=== PATIENT | female | born 1955 | race Caucasian/White ===

== ENCOUNTER 2017-04-16 13:12 | Emergency (ER) | payer MEDICARE ==
--- NOTE | 2017-04-16 14:52 | UC ---
Lower Extremity/Ankle HPI - HPI Summary HPI Summary: Had a fall about 3 weeks ago, directly onto the left knee, with development of pain and swelling of the left knee. Had ecchymosis in the foreleg which tracked to the foot. Has persistent swelling with some calf pain. Of note, has had increased dyspnea with exertion; walking hills which she normally does, has had to stop to catch her breath. - History of Current Complaint Chief Complaint: UCLowerExtremity Stated Complaint: POSS DVT Time Seen by Provider: 04/16/17 14:42 Hx Obtained From: Patient Onset/Duration: Gradual Onset, Lasting Weeks - 3 Severity Initially: Moderate Severity Currently: Moderate Pain Intensity: 7 Pain Scale Used: 0-10 Numeric Aggravating Factor(s): Standing, Ambulation Alleviating Factor(s): Rest Able to Bear Weight: Yes - Risk Factors Gout Risk Factors: Hypertension DVT Risk Factors: Recent Trauma Septic Arthritis Risk Factor: Negative - Allergies/Home Medications Allergies/Adverse Reactions: Allergies Allergy/AdvReac Type Severity Reaction Status Date / Time Acetaminophen [From Tylenol] Allergy Intermediate Abdominal Verified 04/16/17 13 :45 Pain Aspirin Allergy Unknown Verified 04/16/17 13:45 [From Talwin Compound] Reaction Details CI Pigment Blue 63 Allergy Unknown Verified 04/16/17 13:45 [From Cymbalta] Reaction Details Cimetidine Allergy Unknown Verified 04/16/17 13:45 [From Tagamet (Premixed] Reaction Details Codeine Allergy Unknown Verified 08/09/14 06:08 Reaction Details Duloxetine [From Cymbalta] Allergy Unknown Verified 04/16/17 13:45 Reaction Details Ephedrine [From Tedral] Allergy Unknown Verified 04/16/17 13:45 Reaction Details Eszopiclone [From Lunesta] Allergy Unknown Verified 04/16/17 13:45 Reaction Details Iodine Allergy Hives/Diff. Verified 04/16/17 13:45 Breathing/I tching Mirtazapine [From Remeron] Allergy Unknown Verified 04/16/17 13:45 Reaction Details Nefazodone [From Serzone] Allergy Unknown Verified 04/16/17 13:45 Reaction Details Penicillins Allergy Unknown Verified 04/16/17 13:45 Reaction Details Pentazocine [From Talacen] Allergy Unknown Verified 04/16/17 13:45 Reaction Details Phenobarbital [From Tedral] Allergy Unknown Verified 04/16/17 13:45 Reaction Details Pregabalin [From Lyrica] Allergy Unknown Verified 04/16/17 13:45 Reaction Details Ramelteon [From Rozerem] Allergy Unknown Verified 04/16/17 13:45 Reaction Details Serotonin Reuptake Inhibitors Allergy Unknown Verified 04/16/17 13:45 Reaction Details Sertraline [From Zoloft] Allergy Unknown Verified 04/16/17 13:45 Reaction Details Shellfish Allergy Allergy Abdominal Verified 04/16/17 13:45 Pain Theophylline [From Tedral] Allergy Unknown Verified 04/16/17 13:45 Reaction Details Clindamycin AdvReac Diarrhea Verified 04/16/17 13:45 green plants Allergy Unknown Uncoded 04/16/17 13:45 Reaction Details Home Medications: Home Medications Adalimumab [Humira] 10 mg SC MONTHLY 04/16/17 [History Confirmed 04/16/17] Omeprazole CAP* [Prilosec CAP* 20 MG] 20 mg PO BID 04/16/17 [History Confirmed 04/16/17] sulfaSALAzine TAB* [Azulfidine TAB*] 500 mg PO BID 04/16/17 [History Confirmed 04/16/17] PMH/Surg Hx/FS Hx/Imm Hx - Additional Past Medical History Additional PMH: chronic pain associated with RA, ankylosis spondylitis and fibromyalgia Cardiovascular History: Hypertension GI/ History: Gastroesophageal Reflux - Surgical History Surgical History: Yes Surgery Procedure, Year, and Place: HERNIA, MASS LEFT BREAST,-CLIPS LEFT, D AND C, ROTATOR CUFF, EYES, TONSILS, - Family History Known Family History: Positive: Cardiac Disease, Hypertension, Other - ankylsosi spondylitis; sister of bile duct cancer. - Social History Occupation: Disabled Lives: Alone Alcohol Use: Occasionally Substance Use Type: None Smoking Status (MU): Former Smoker Type: Cigarettes Length of Time of Smoking/Using Tobacco: 20 YRS Have You Smoked in the Last Year: No When Did the Patient Quit Smoking/Using Tobacco: 1999 - Immunization History Most Recent Influenza Vaccination: fall 2016 Most Recent Tetanus Shot: 2014 Most Recent Pneumonia Vaccination: never Review of Systems Constitutional: Fatigue Eyes: Other - vertigo, photophobia. Gastrointestinal: Other - history of Crohn's disease. Motor: Negative Musculoskeletal: Arthralgia, Calf Tenderness Neurological: Other - chronic vertigo Psychological: Negative Is Patient Immunocompromised?: Yes All Other Systems Reviewed And Are Negative: Yes Physical Exam Triage Information Reviewed: Yes Appearance: Pain Distress - mild to moderate., Obese Vital Signs: Initial Vital Signs Temp 97.9 F 04/16/17 13:34 Pulse 83 04/16/17 13:34 Resp 16 04/16/17 13:34 BP 172/70 04/16/17 13:34 Pulse Ox 98 04/16/17 13:34 Vital Signs Reviewed: Yes ENT: Positive: Pharynx normal Neck exam: Normal Respiratory: Positive: Lungs clear, Normal breath sounds Cardiovascular: Positive: RRR, No Murmur Musculoskeletal Exam: Other - left knee effusion, mildly warm Musculoskeletal: Positive: ROM Limited @ - left knee, Other: - + Julee's on the left Calf circumference on the left 7 cm below TT is 46 compared to 44cm on the right. Ankle circumference on the right is 1 cm less than the left. Lower Extremity Course/Dx - Course Course Of Treatment: continue symptomatic treatment of knee pain - Differential Dx/Diagnosis Differential Diagnosis/HQI/PQRI: Contusion, DVT, Sprain, Strain Provider Diagnoses: left knee contusion Discharge - Discharge Plan Condition: Stable Disposition: HOME Patient Education Materials: Knee Pain (ED) Referrals: Angus Wiley MD [Primary Care Provider] - Additional Instructions: You do not have a deep veing thrombosis. Follow up with Dr. Wiley as needed.
[2017-04-16 15:34] VITALS: BP 152/78
--- NOTE | 2017-04-16 15:39 | RAD ---
INDICATION: LEFT calf pain and swelling for 3 weeks post fall. History of rheumatoid arthritis. Assess for DVT. COMPARISON: No relevant prior exams available on the [facility] PACS. TECHNIQUE: Luna scale, color Doppler, and spectral analysis of the deep veins of the LEFT lower extremity. Vessel compression, phasicity, and augmentation assessed. REPORT: The LEFT common femoral, great saphenous, profunda femoral, femoral, popliteal, peroneal, and posterior tibial veins are patent. Patency of the RIGHT common femoral vein documented. IMPRESSION: No evidence for LEFT lower extremity deep venous thrombosis.
== END 2017-04-16 15:54 | disposition home or self-care (01) ==
LOC: UCEAST 13:12
DX: S80.02XA Contusion of left knee, initial encounter (principal); W18.30XA Fall on same level, unspecified, initial encounter; Y93.9 Activity, unspecified; Y92.9 Unspecified place or not applicable; Y99.9 Unspecified external cause status; M06.9 Rheumatoid arthritis, unspecified; K21.9 Gastro-esophageal reflux disease without esophagitis; Z87.891 Personal history of nicotine dependence
CPT/HCPCS: 99212; G0463

== ENCOUNTER 2018-01-20 12:58 | Emergency (ER) | payer MEDICARE ==
--- NOTE | 2018-01-20 13:08 | UC ---
Skin Complaint HPI - HPI Summary HPI Summary: A 62 y/o F presents to E s/p being stung by a hornet onset 48 hours ago. Pt was stung on the knuckles of her R hand. Swelling of her R hand has worsened this AM. Associated sx: erythema of R hand, generalized itching in the area. Denies SOB, edema of tongue and lips. Her PCP referred her to the E. She took oral Benadryl, topical hydrocortisone for the itching but to no relief. PMHx: Crohn's, RA, fibromyalgia. Former smoker. - History of Current Complaint Stated Complaint: BEE STING Hx Obtained From: Patient Onset/Duration: Sudden Onset, Lasting Days - 48 hours ago, Still Present Timing: Constant Current Severity: Mild Pain Intensity: 3 Pain Scale Used: 0-10 Numeric Location: Hand (Right) Character: Swelling, Pruritus, Pain, Redness Associated Signs & Symptoms: Negative: Difficulty Breathing - Allergy/Home Medications Allergies/Adverse Reactions: Allergies Allergy/AdvReac Type Severity Reaction Status Date / Time ephedrine [From Tedral] Allergy Intermediate Unknown Verified 01/20/18 13:11 Reaction Details phenobarbital [From Tedral] Allergy Intermediate Unknown Verified 01/20/18 13:11 Reaction Details theophylline [From Tedral] Allergy Intermediate Unknown Verified 01/20/18 13:11 Reaction Details acetaminophen [From Tylenol] Allergy Unknown Verified 01/20/18 13:07 Reaction Details aspirin Allergy Unknown Verified 01/20/18 13:08 [From Talwin Compound] Reaction Details cimetidine Allergy Unknown Verified 01/20/18 13:09 Reaction Details clindamycin Allergy stomach Verified 01/20/18 13:17 upset codeine Allergy Unknown Verified 01/20/18 13:10 Reaction Details duloxetine [From Cymbalta] Allergy Unknown Verified 01/20/18 13:08 Reaction Details eszopiclone [From Lunesta] Allergy Unknown Verified 01/20/18 13:12 Reaction Details iodine Allergy Unknown Verified 01/20/18 13:12 Reaction Details mirtazapine [From Remeron] Allergy Unknown Verified 01/20/18 13:12 Reaction Details nefazodone [From Serzone] Allergy Unknown Verified 01/20/18 13:13 Reaction Details nickel Allergy Unknown Verified 01/20/18 13:22 Reaction Details Penicillins Allergy Unknown Verified 01/20/18 13:14 Reaction Details pentazocine Allergy Unknown Verified 01/20/18 13:08 [From Talwin Compound] Reaction Details pregabalin [From Lyrica] Allergy Unknown Verified 01/20/18 13:15 Reaction Details ramelteon [From Rozerem] Allergy Unknown Verified 01/20/18 13:16 Reaction Details sertraline Allergy Unknown Verified 01/20/18 13:16 Reaction Details green plants Allergy Unknown Uncoded 04/16/17 13:45 Reaction Details nickel Allergy Unknown Uncoded 01/20/18 13:22 Reaction Details shellfish Allergy Unknown Uncoded 01/20/18 13:17 Reaction Details Review of Systems Skin: Other - Swelling, redness and itch to R hand ENT: Negative - swelling to lips/tongue Respiratory: Negative - SOB All Other Systems Reviewed And Are Negative: Yes PMH/Surg Hx/FS Hx/Imm Hx Previously Healthy: No - Crohn's, fibromyalgia Cardiovascular History: Hypertension, Myocardial Infarction Respiratory History: Asthma - Surgical History Surgical History: Yes Surgery Procedure, Year, and Place: HERNIA, MASS LEFT BREAST,-CLIPS LEFT, D AND C, ROTATOR CUFF, EYES, TONSILS, - Family History Known Family History: Positive: Cardiac Disease, Hypertension, Other - ankylsosi spondylitis; sister of bile duct cancer. Family History: arthritis, thyroid - Social History Occupation: Disabled Lives: Alone Alcohol Use: Occasionally Substance Use Type: None Smoking Status (MU): Former Smoker Type: Cigarettes Length of Time of Smoking/Using Tobacco: 20 YRS Have You Smoked in the Last Year: No When Did the Patient Quit Smoking/Using Tobacco: 1999 - Immunization History Most Recent Influenza Vaccination: fall 2016 Most Recent Tetanus Shot: 2013 Most Recent Pneumonia Vaccination: never Physical Exam - Summary Physical Exam Summary: VITAL SIGNS: Reviewed. GENERAL: Patient is a well-developed and nourished FEMALE who is lying comfortable in the stretcher. Patient is not in any acute respiratory distress. HEAD AND FACE: Normocephalic EYES: PERRLA, EOMI x 2. EARS: Hearing grossly intact. MOUTH: Oropharynx within normal limits. NECK: Supple, trachea is midline, no adenopathy, no JVD, no carotid bruit. CHEST: Symmetric, no tenderness at palpation LUNGS: Clear to auscultation bilaterally. No wheezing or crackles. CVS: Regular rate and rhythm, S1 and S2 present, no murmurs or gallops appreciated. ABDOMEN: Soft, non-tender. Bowel sounds are normal. No abdominal abnormal pulsations. EXTREMITIES: Full ROM in all major joints, no cyanosis or clubbing. There is swelling to R dorsal aspect of R hand going into wrist and forearm with positive erythema NEURO: Alert and oriented x 3. No acute neurological deficits. Speech is normal and follows commands. SKIN: Dry and warm Triage Information Reviewed: Yes Vital Signs Reviewed: Yes Course/Dx - Course Course Of Treatment: The patient was found to have increased BP in UC. The patient will follow up with PCP for better control of BP. . This patient is a 62-year-old female who presents to the urgent care with chief complaint of having pain, redness in the right hand after she was stung by a bee. He since that the patient is living with a cellulitis. Patient was given Bactrim and Atarax for the itching. Patient will follow-up with primary care physician for further workup and management. Patient is hemolyticus stable alert oriented 3. - Diagnoses Provider Diagnoses: Cellulitis Discharge - Sign-Out/Discharge Documenting (check all that apply): Patient Departure - DC All imaging exams completed and their final reports reviewed: No Studies - Discharge Plan Condition: Stable Disposition: HOME Prescriptions: hydrOXYzine HCL TAB* [Atarax 25 MG TAB*] 25 mg PO TID PRN #30 tab PRN Reason: Itching Sulfamethox/Trimethoprim DS* [Bactrim DS 800/160 TAB*] 1 tab PO BID #20 tab Patient Education Materials: Cellulitis (ED) Referrals: Angus Wiley MD [Primary Care Provider] - Additional Instructions: Take medications as instructed and adhere to plan Take Acetaminophen or ibuprofen for pain or fever Increase your fluid intake Return to the or go to the emergency department if symptoms worsen Follow-up with primary care physician in next 2-3 days FOLLOW UP WITH YOUR PRIMARY CARE PROVIDER WITHIN ONE WEEK FOR HIGH BLOOD PRESSURE NOTED TODAY. - Billing Disposition and Condition Condition: STABLE Disposition: Home - Attestation Statements Document Initiated by Nikitaibananda: Yes Documenting Scribe: Colin Tinajero Provider For Whom Ro is Documenting (Include Credential): Jerry Dupont MD Scribe Attestation: I, Colin Tinajero, scribed for Jerry Dupont MD on 01/20/18 at 1413. Scribe Documentation Reviewed: Yes Provider Attestation: The documentation as recorded by the Colin lepe accurately reflects the service I personally performed and the decisions made by , Jerry Dupont MD
[2018-01-20 13:18] VITALS: BP 166/97
== END 2018-01-20 13:25 | disposition home or self-care (01) ==
LOC: UCEAST 12:58
DX: L03.113 Cellulitis of right upper limb (principal); R03.0 Elevated blood-pressure reading, without diagnosis of hypertension; J45.909 Unspecified asthma, uncomplicated; Z88.8 Allergy status to other drugs, medicaments and biological substances; Z88.5 Allergy status to narcotic agent; Z88.0 Allergy status to penicillin; Z91.09 Other allergy status, other than to drugs and biological substances; Z88.1 Allergy status to other antibiotic agents; Z91.013 Allergy to seafood; Z87.891 Personal history of nicotine dependence
CPT/HCPCS: 99212; G0463

== ENCOUNTER 2018-07-16 11:11 | Day surgery (SDC) | payer MEDICARE ==
[~2018-07-16 11:11] MED LIST: Buffered Lidocaine 1% SYRIN* 1 ML/SYRINGE INTRADERM ONE; DiMENhydriNATE IV* 50 MG/ML VIAL IV PUSH ONE; Lactated Ringers 1000 ML Bag* 1,000 ML IV SCH; Naloxone* 0.4 MG/ML 1 ML VIAL IV PRN; Ondansetron INJ* 2 MG/ML VIAL IV PRN; fentaNYL* 50 MCG/ML 2 ML VIAL (100 MCG VIAL) IV PRN
[2018-07-16] MEDS ORDERED: DiMENhydriNATE IV* 50 MG/ML VIAL ONE (11:52)
[2018-07-16] MEDS ORDERED: Midazolam* 1 MG/ML 2 ML VIAL (2 MG) ONE (11:59)
[2018-07-16] MEDS ORDERED: Lidocaine 2% PF * 5 ML VIAL ONE (11:59)
[2018-07-16] MEDS ORDERED: Propofol* 10 MG/ML 20 ML BTL ONE ×3 (11:59→13:06)
[2018-07-16] MEDS ORDERED: fentaNYL* 50 MCG/ML 2 ML VIAL (100 MCG VIAL) ONE (13:05)
[2018-07-16 14:19] VITALS: BP 169/84
--- NOTE | 2018-07-16 16:32 | PRO ---
CC: Dr. Angus Wiley * ESOPHAGOGASTRODUODENOSCOPY AND COLONOSCOPY REPORT: DATE OF PROCEDURE: 07/16/18 - [facility] PRIMARY CARE PHYSICIAN: Dr. Angus Wiley. INDICATION FOR PROCEDURE: GERD and rectal bleeding. PROCEDURE PERFORMED: Complete esophagogastroduodenoscopy with biopsies and complete colonoscopy to the terminal ileum with biopsies. MEDICATIONS GIVEN: Please see anesthesia record. DESCRIPTION OF PROCEDURE: After the EGD and colonoscopy procedure including the risks, benefits, and alternatives, with the risks not limited to perforation , surgery, missed lesions, and/or were explained to the patient, written and informed consent was obtained. IV medication was given and a bite-block was placed between the teeth. Special care was taken for her loose tooth on the lower jaw. The adult Olympus gastroscope was then inserted into the patient' s oropharynx, into the tubular esophagus. The tubular esophagus had less than 1 cm variation. I did biopsy to rule out Olivo's esophagus. The scope was advanced to the lower esophageal sphincter into the stomach. There was mild antral gastritis. This was biopsied for CLOtesting. On retroflexion, no significant hiatal hernia was visualized. The scope was then advanced through the widely patent pylorus into the duodenal bulb, C-loop, and distal duodenum. This was biopsied to rule out villous blunting, but normal in appearance. The scope was then removed from the patient. She tolerated the procedure well. She was given additional IV sedation medication. A rectal exam was then performed. The rectal exam was unremarkable. The adult Olympus colonoscope was then inserted into the patient's rectum and advanced very carefully through the entirety of the colon into the cecal base. The preparation was fair. Good mucosal views were obtained after washing. The terminal ileum was identified and then intubated x7 to 8 cm and normal in appearance. Biopsies were taken to rule out Crohn's disease. The scope was returned to the cecum. Direct views were normal. Over the next 10 minutes, the scope was carefully withdrawn, inspecting the mucosa. Biopsies were taken of the right, left and transverse colon to rule out any Crohn's disease; however, microscopically, the colon appeared normal in appearance. It was just slightly redundant. On return to the rectum, direct views were normal. On retroflexion, internal hemorrhoids were appreciated, nonbleeding grade I. The scope was then removed from the patient. She tolerated the procedure well. She returned to the recovery room in stable condition. IMPRESSION: 1. Complete esophagogastroduodenoscopy with biopsies. 2. Mild GE junction variability, biopsy to rule out Olivo's. 3. Mild antral gastritis, biopsied for CLOtesting. 4. Normal duodenum biopsy to rule out villous blunting. 5. Colonoscopy to the terminal ileum complete. 6. Fair prep. 7. No evidence of Crohn's disease microscopically. Biopsies taken as above. 8. Grade 1 internal hemorrhoids. RECOMMENDATIONS: Source of the bleeding likely grade I internal hemorrhoids. No significant diverticulosis or evidence of Crohn's disease is present within the colon and distal terminal ileum. At this time would continue symptomatic support. She is followed by Dr. 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 Recommend adding fiber to her diet to help with her hemorrhoids. We will follow up on the results of the biopsies. [id number] #: [id number]
== END 2018-07-16 14:43 | disposition home or self-care (01) ==
LOC: OR 11:11
PROVIDERS: ATTEND Internal Medicine Gastroenterology
DX: K21.9 Gastro-esophageal reflux disease without esophagitis (principal); K29.50 Unspecified chronic gastritis without bleeding; K62.5 Hemorrhage of anus and rectum
CPT/HCPCS: 87077; 88305; J1240; J2250; J2704; J3010

== ENCOUNTER 2019-03-13 15:03 | Emergency (ER) | payer MEDICARE ==
--- OUTSIDE RECORDS SUMMARY | 2019-03-13 15:12 | XMS REPORT | Continuity of Care Document ---
:1955 External Reference #:[id number] Author Name Aravind Acosta DO, MPH Address [facility], [address] [place] [address] Care Team Providers Name Role Phone Angus Wiley M.D. 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 Problems Provider Date Fibromyalgia Aravind Acosta DO, MPH Onset: 02/03/2019 Long-term current use of opiate analgesic Aravind Acosta DO, MPH Onset: 2018 drug Essential hypertension Aravind Acosta DO, MPH Onset: 02/03/2019 Gastroesophageal reflux disease Aravind Acosta DO MPH Onset: 02/03/2019 Crohn's disease Aravind Acosta DO MPH Onset: 02/03/2019 Ankylosing spondylitis Aravind Acosta DO MPH Onset: 02/03/2019 Arthralgia of the pelvic region and thigh Aravind Acosta DO MPH Onset: 2018 Low back pain Aravind Acosta DO MPH Onset: 02/03/2019 Chronic pain Aravind Acosta DO MPH Onset: 02/03/2019 Social History Type Date Description Comments Sex Unknown Tobacco Use Start: Unknown Never Smoked Cigarettes ETOH Use Occasionally consumes alcohol Tobacco Use Start: Unknown Patient has never smoked Smoking Status Reviewed: 02/03/19 Patient has never smoked Allergies, Adverse Reactions, Alerts Active Allergies Reaction Severity Comments Date PCN 04/18/2005 Codeine 04/18/2005 Talwin 04/18/2005 Tagamet 04/18/2005 Serzone 04/18/2005 Tedral 04/18/2005 Remeron 04/18/2005 Zoloft 04/18/2005 Iodine 04/18/2005 Tylenol 04/18/2005 Prozac 04/18/2005 Lyrica cp and sob 09/18/2006 cymbalta 09/18/2006 Clindamycin 04/22/2011 Shellfish-derived Products 04/22/2011 Cymbalta 04/22/2011 Serzone 04/22/2011 Remeron 04/22/2011 Bald-Faced Hornet Venom Protein 02/08/2018 Medications Active Medications SIG Qnty Indications Ordering Date Provider Oxycodone HCL si-2po every 4 240tabs Acosta, Aravind, 05/05/2007 5mg to 6 hours as DO, MPH Tablets directed chronic pain patient Oxycontin si by mouth 90tabs Acosta, Aravind, 05/05/2007 40mg Tab ER every 8 hours as DO, MPH 12H Abuse-Det directed chronic pain patient Zanaflex si/2-1 by mouth 60tabs Acosta, Aravind, 01/21/2005 4mg Tablets twice a day as DO, MPH directed chronic pain patient Celebrex si by mouth 30caps Acosta, Aravind, 01/21/2005 200mg daily as directed DO, MPH Capsules chronic pain patient Wellbutrin XL si by mouth 30tabs Acosta, Aravind, 150mg every day as DO, MPH Tablets ER 24HR directed Lisinopril 1 po bid Unknown 2.5mg Tablets Omeprazole si by mouth Unknown 20mg once a day as Capsules DR directed dosage change Humira 1 injection every Unknown 40mg/0.8ML 2 weeks PSKT Terbinafine HCL daily Unknown 250mg Tablets Immunizations Description No Information Available Vital Signs Date Vital Result Comment 02/03/2019 10:55am BP Systolic 128 mmHg BP Diastolic 80 mmHg Heart Rate 84 /min Respiratory Rate 20 /min Height 67.50 inches 5'7.50" Weight 230.00 lb Pain Level 6 Pain at this time. Pain Level With Medicine 5 on average with meds Pain Level Without Medicine 9 without meds BMI (Body Mass Index) 35.5 kg/m2 01/04/2019 11:19am BP Systolic 128 mmHg BP Diastolic 82 mmHg Heart Rate 84 /min Respiratory Rate 20 /min Height 67.50 inches 5'7.50" Weight 237.00 lb Pain Level 6 Pain at this time. 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 analgesic Office Visit 12/07/2018 11:30a Main Office as Aravind Acosta G89.29 Other chronic Of 07/02/13 DO, MPH pain M25.551 Pain in right hip M25.552 Pain in left hip M79.7 Fibromyalgia M54.5 Low back pain Z79.891 intermediate designer (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 opiate analgesic Office Visit 11/04/2018 11:45a Main Office as Aravind Acosta G89.29 Other chronic Of 07/02/13 DO, MPH pain M54.5 Low back pain M79.7 Fibromyalgia M45.0 Ankylosing spondylitis of multiple sites in spine M25.551 Pain in right hip M25.552 Pain in left hip Z79.891 intermediate designer (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 opiate analgesic Office Visit 10/06/2018 11:30a Main Office as Aravind Acosta G89.29 Other chronic Of 07/02/13 DO, MPH pain M54.5 Low back pain M45.0 Ankylosing spondylitis of multiple sites in spine M79.7 Fibromyalgia K50.918 Crohn's disease, unspecified, with other complication M25.551 Pain in right hip M25.552 Pain in left hip I10 Essential (primary) hypertension K21.9 Gastro-esophageal reflux disease without esophagitis Z79.891 intermediate (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 opiate analgesic Office Visit 09/06/2018 11:45a Main Office as Aravind Acosta G89.29 Other chronic Of 07/02/13 DO, MPH pain M25.552 Pain in left hip M25.551 Pain in right hip M54.5 Low back pain M79.7 Fibromyalgia M45.0 Ankylosing spondylitis of multiple sites in spine K50.918 Crohn's disease, unspecified, with other complication I10 Essential (primary) hypertension Z79.891 intermediate designer (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 opiate analgesic Z71.89 Other specified counseling Office Visit 08/06/2018 11:30a Main Office as Aravind Acosta, G89.29 Other chronic Of 07/02/13 DO, MPH pain M15.0 Primary generalized (osteo)arthritis M54.5 Low back pain M25.551 Pain in right hip M25.552 Pain in left hip Z79.891 intermediate (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 opiate analgesic Assessments Date Code Description Provider 02/03/2019 G89.29 Other chronic pain Acosta, Aravind, DO, MPH 02/03/2019 M79.7 Fibromyalgia Acosta, Aravind, DO, MPH 02/03/2019 M54.5 Low back pain Acosta, Aravind, DO, MPH 02/03/2019 M25.551 Pain in right hip Acosta, Aravind, DO, MPH 02/03/2019 M45.0 Ankylosing spondylitis of multiple sites in Acosta, Aravind, DO, MPH spine 02/03/2019 K50.918 Crohn's disease, unspecified, with other Acosta, Aravind, DO , MPH complication 02/03/2019 K21.9 Gastro-esophageal reflux disease without Acosta, Aravind, DO, MPH esophagitis 02/03/2019 I10 Essential (primary) hypertension Acosta, Aravind, DO, MPH 02/03/2019 Z79.891 intermediate designer (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 opiate analgesic Acosta, Aravind , DO, MPH 01/04/2019 G89.29 Other chronic pain Acosta, Aravind, DO, MPH 01/04/2019 M54.5 Low back pain Acosta, Aravind, DO, MPH 01/04/2019 M79.7 Fibromyalgia Acosta, Aravind, DO, MPH 01/04/2019 M25.552 Pain in left hip Acosta, Aravind, DO, MPH 01/04/2019 M25.551 Pain in right hip Acosta, Aravind, DO, MPH 01/04/2019 Z79.891 intermediate designer (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 opiate analgesic Acosta, Aravind , DO, MPH 12/07/2018 G89.29 Other chronic pain Acosta, Aravind, DO, MPH 12/07/2018 M25.551 Pain in right hip Acosta, Aravind, DO, MPH 12/07/2018 M25.552 Pain in left hip Acosta, Aravind, DO, MPH 12/07/2018 M79.7 Fibromyalgia Acosta, Aravind, DO, MPH 12/07/2018 M54.5 Low back pain Acosta, Aravind, DO, MPH 12/07/2018 Z79.891 intermediate designer (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 opiate analgesic Acosta, Aravind , DO, MPH 11/04/2018 G89.29 Other chronic pain Acosta, Aravind, DO, MPH 11/04/2018 M54.5 Low back pain Acosta, Aravind, DO, MPH 11/04/2018 M79.7 Fibromyalgia Acosta, Aravind, DO, MPH 11/04/2018 M45.0 Ankylosing spondylitis of multiple sites in Acosta, Aravind, DO, MPH spine 11/04/2018 M25.551 Pain in right hip Acosta, Aravind, DO, MPH 11/04/2018 M25.552 Pain in left hip Acosta, Aravind, DO, MPH 11/04/2018 Z79.891 intermediate (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 opiate analgesic Acosta, Aravind , DO, MPH 10/06/2018 G89.29 Other chronic pain Acosta, Aravind, DO, MPH 10/06/2018 M54.5 Low back pain Acosta, Aravind, DO, MPH 10/06/2018 M45.0 Ankylosing spondylitis of multiple sites in Acosta, Aravind, DO, MPH spine 10/06/2018 M79.7 Fibromyalgia Acosta, Aravind, DO, MPH 10/06/2018 K50.918 Crohn's disease, unspecified, with other Acosta, Aravind, DO , MPH complication 10/06/2018 M25.551 Pain in right hip Acosta, Aravind, DO, MPH 10/06/2018 M25.552 Pain in left hip Acosta, Aravind, DO, MPH 10/06/2018 I10 Essential (primary) hypertension Acosta, Aravind, DO, MPH 10/06/2018 K21.9 Gastro-esophageal reflux disease without Acosta, Aravind, DO, MPH esophagitis 10/06/2018 Z79.891 intermediate (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 opiate analgesic Acosta, Aravind , DO, MPH 09/06/2018 G89.29 Other chronic pain Acosta, Aravind, DO, MPH 09/06/2018 M25.552 Pain in left hip Acosta, Aravind, DO, MPH 09/06/2018 M25.551 Pain in right hip Acosta, Aravind, DO, MPH 09/06/2018 M54.5 Low back pain Acosta, Aravind, DO, MPH 09/06/2018 M79.7 Fibromyalgia Acosta, Aravind, DO, MPH 09/06/2018 M45.0 Ankylosing spondylitis of multiple sites in Acosta, Aravind, DO, MPH spine 09/06/2018 K50.918 Crohn's disease, unspecified, with other Acosta, Aravind, DO , MPH complication 09/06/2018 I10 Essential (primary) hypertension Acosta, Aravind, DO, MPH 09/06/2018 Z79.891 intermediate designer (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 opiate analgesic Acosta, Aravind , DO, MPH 09/06/2018 Z71.89 Other specified counseling Acosta, Aravind, DO, MPH 08/06/2018 G89.29 Other chronic pain Acosta, Aravind, DO, MPH 08/06/2018 M15.0 Primary generalized (osteo)arthritis Acosta, Aravind, DO, MPH 08/06/2018 M54.5 Low back pain Acosta, Aravind, DO, MPH 08/06/2018 M25.551 Pain in right hip Acosta, Aravind, DO, MPH 08/06/2018 M25.552 Pain in left hip Acosta, Aravind, DO, MPH 08/06/2018 Z79.891 intermediate (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 opiate analgesic Acosta, Aravind , DO, MPH Plan of Treatment Future Appointment(s):03/08/2019 11:15 am - Aravind Acosta DO, MPH at Main Office as Of 07/02/1408 - Aravind Acosta DO, MPHG89.29 Other chronic painComments:Chronic. Symptoms and complaints discussed and reviewed today. No significant changes in physical findings. Continue current medical pain management.M79.7 FibromyalgiaComments:Chronic. Symptoms and complaints discussed and reviewed today. No significant changes in physical findings. Continue current medical pain management.M54.5 Low back painComments:Chronic. Symptoms and complaints discussed and reviewed today.No changes in physical findings. Patient is stable and comfortable when current medical therapy is rendered.M25.551 Pain in right hipComments:Chronic. Symptoms and complaints discussed and reviewed today. No significant changes in physical findings. Continue current medical pain management.M45.0 Ankylosing spondylitis of multiple sites in spineComments:Followed by PCP and ware finisher. Will follow in regards to her Pain management. Continue current medical pain management.K50.918 Crohn's disease, unspecified, with other complicationComments :Chronic. Symptoms and complaints discussed and reviewed today. No significant changes in physical findings. Continue current medical pain management. Followed by PCP and GI. Will follow in terms of pain management and associated medications.K21.9 Gastro-esophageal reflux disease without esophagitisComments: Following as pertains to chronic pain medications particularly NSAIDS and Tylenol as well as any meds that effect the GI tract.I10 Essential (primary) hypertensionComments:Chronic. Symptoms and complaints discussed and reviewed today. No significant changes in physical findings or treatments. Continue current medical pain management. Followed by PCP and cardiology. Will follow in terms of pain management and associated medications. No changes in treatment reported at this time. Activity as tolerated. Will follow and refer when appropriate. Diet and exercise discussed.Z79.891 intermediate designer (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 opiate analgesicNew Labs:Urine Drug Screen, Ordered: 02/03/19Comments:Urine drug screen sample taken today to monitor opiate use and to monitor use of illicit substances.Will discuss results at next appointment.The following tests were ordered:6 AM, AMPH, JOSEPH, SINA, BUP, CARIS, COCM, COT, ETG, FENT, MCSHSG, OPI, OXY, PCP, TAPEN, XTSY, ZOLP. A urine drug test (UDT) was ordered for this patient and collected on site today. Creatinine has been ordered as well for specimen validity, not for kidney function. Preliminary UDT results are not final and should not be used to determine patient care or plan of treatment. Initially a qualitative immunoassay screen will be done. Any inconsistent or positive findings will be further tested with a more comprehensive quantitative confirmation LCMS study. It is part of the treatment process of prescribing controlled substances and is considered standard of care.AllComments:Continue current medical pain management; injection therapy, osteopathic manipulation, PT / modalities, and consults as needed to manage chronic pain.Non - opioid pain management discussed and optionsdiscussed.Side effects discussed; anticipatory guidance given. Patient clearly understand and agree with all medical treatments and suggestions. All medicines prescribed are adequate and appropriate for this patient's complaint of pain, medical history, physical, and personal goals.Goals of Treatment are to provide adequate and appropriate multidisciplinary medical pain management to increase/ maintain patient's quality of life and functionality while maintaining satisfactory side effect profile andminimizing intermediate designer end-organ damage. Importance of regular nutrition throughout the day discussed.Activity as toleratedContinue with PCP Functional Status Description No Information Available Mental Status Description No Information Available Referrals Description No Information Available
--- OUTSIDE RECORDS SUMMARY | 2019-03-13 15:12 | XMS REPORT | Continuity of Care Document ---
:1955 External Reference #:[id number] Author Name Aravind Acosta DO, MPH Address [facility], [address] [place] [address] Care Team Providers Name Role Phone Angus Wilye M.D. 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 Pain Level With Medicine 6 on average with meds Pain Level Without Medicine 9 without meds BMI (Body Mass Index) 36.1 kg/m2 02/03/2019 10:55am BP Systolic 128 mmHg BP Diastolic 80 mmHg Heart Rate 84 /min Respiratory Rate 20 /min Height 67.50 inches 5'7.50" Weight 230.00 lb Pain Level 6 Pain at this time. Pain Level With Medicine 5 on average with meds Pain Level Without Medicine 9 without meds BMI (Body Mass Index) 35.5 kg/m2 Results Description No Information Available Procedures Description No Information Available Medical Devices Description No Information Available Encounters Type Date Location Provider Dx Diagnosis Office Visit 02/03/2019 Main Office as Of Aravind Acosta DO, G89.29 Other chronic pain 11:00a 07/02/13 MPH M79.7 Fibromyalgia M54.5 Low back pain M25.551 Pain in right hip M45.0 Ankylosing spondylitis of multiple sites in spine K50.918 Crohn's disease, unspecified, with other complication K21.9 Gastro-esophageal reflux disease without esophagitis I10 Essential (primary) hypertension Z79.891 retirement (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 opiate analgesic Office Visit 01/04/2019 11:15a Main Office as Aravind Acosta G89.29 Other chronic Of 07/02/13 DO, MPH pain M54.5 Low back pain M79.7 Fibromyalgia M25.552 Pain in left hip M25.551 Pain in right hip 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9 Gastro-esophageal reflux disease without esophagitis Z79.891 retirement (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 opiate analgesic Assessments Date Code Description Provider 03/08/2019 G89.29 Other chronic pain Acosta, Aravind, DO, MPH 03/08/2019 M54.5 Low back pain Acosta, Aravind, DO, MPH 03/08/2019 M25.551 Pain in right hip Acosta, Aravind, DO, MPH 03/08/2019 M45.0 Ankylosing spondylitis of multiple sites in Acosta, Aravind, DO, MPH spine 03/08/2019 M79.7 Fibromyalgia Acosta, Aravind, DO, MPH 03/08/2019 K50.918 Crohn's disease, unspecified, with other Acosta, Aravind, DO , MPH complication 03/08/2019 R06.02 Shortness of breath Acosta, Aravind, DO, MPH 03/08/2019 Z79.891 retirement (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 opiate analgesic Acosta, Aravind , DO, MPH 02/03/2019 G89.29 Other chronic pain Acosta, Aravind, [...] hypertension Acosta, Aravind, DO, MPH 02/03/2019 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 Acosta, Aravind , DO, MPH 01/04/2019 G89.29 Other chronic pain Acosta, Aravind, DO, MPH 01/04/2019 M54.5 Low back pain Acosta, Aravind, DO, MPH 01/04/2019 M79.7 Fibromyalgia Acosta, Aravind, DO, MPH 01/04/2019 M25.552 Pain in left hip Acosta, Aravind, DO, MPH 01/04/2019 M25.551 Pain in right hip Acosta, Aravind, DO, MPH 01/04/2019 Z79.891 retirement (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 opiate analgesic Acosta, Aravind , DO, MPH 12/07/2018 G89.29 Other chronic pain Acosta, Aravind, DO, MPH 12/07/2018 M25.551 Pain in right hip Acosta, Aravind, DO, MPH 12/07/2018 M25.552 Pain in left hip Acosta, Aravind, DO, MPH 12/07/2018 M79.7 Fibromyalgia Acosta, Aravind, DO, MPH 12/07/2018 M54.5 Low back pain Acosta, Aravind, DO, MPH 12/07/2018 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 Acosta, Aravind [...] hip Acosta, Aravind, DO, MPH 11/04/2018 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 Acosta, Aravind , DO, MPH 10/06/2018 G89.29 Other chronic pain Acosta, Aravind, DO, MPH 10/06/2018 M54.5 Low back pain Acosta, Aravind, DO, MPH 10/06/2018 M45.0 Ankylosing spondylitis of multiple sites in Aravind Acosta DO MPH spine 10/06/2018 M79.7 Fibromyalgia Aravind Acosta DO MPH 10/06/2018 K50.918 Crohn's disease, unspecified, with other Aravind Acosta DO MPH complication 10/06/2018 M25.551 Pain in right hip Aravind Acosta DO MPH 10/06/2018 M25.552 Pain in left hip Aravind Acosta DO MPH 10/06/2018 I10 Essential (primary) hypertension Aravind Acosta DO MPH 10/06/2018 K21.9 Gastro-esophageal reflux disease without Aravind Acosta DO MPH esophagitis 10/06/2018 Z79.891 retirement (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 opiate analgesic Aravind Acosta DO MPH Plan of Treatment Future Appointment(s):04/07/2019 11:00 am - Aravind Acosta DO MPH at Main Office as Of 07/02/1409 - Aravind Acosta DO MPHG89.29 Other chronic painComments:Chronic. 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 Will follow in regards to her Pain management. Continue current medical pain management.M79.7 FibromyalgiaComments: Chronic. Symptoms and complaints discussed and reviewed today. No significant changes in physical findings. Continue current medical pain management.K50.918 Crohn's disease, unspecified, with other complicationComments:Chronic. Symptoms and complaints discussed and reviewed today. No significant changes in physical findings. Continue current medical pain management. Followed by PCP and GI. Will follow in terms of pain management and associated medications.R06.02 Shortness of breathComments:Follow up with PCP.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New Labs:Urine Drug Screen, Ordered: 03/08/19Comments:Urine drug screen sample taken today to monitor [...] controlled substances and is considered standard of care. Urine drug screen sample taken today to monitor opiate use and to monitor use of illicit substances. Will discuss results at next appointment.The following tests were ordered:6 AM, AMPH, JOSEPH, SINA, BUP, CARIS, COCM, ETG, FENT , MCSHSG, OPI, OXY, PCP, TAPEN, XTSY, ZOLP. [...] while maintaining satisfactory side effect profile andminimizing middle or intermediate school principal end-organ damage. Importance of regular nutrition throughout the day discussed.Activity as toleratedContinue with PCP Functional Status Description No Information Available Mental Status Description No Information Available Referrals Description No Information Available
[2019-03-13 15:21] VITALS: BP 160/88
--- NOTE | 2019-03-13 15:42 | UC ---
Respiratory Complaint HPI - HPI Summary HPI Summary: c/o coughing for 2 wks, feels worsening. at times sob. denies sick contact or recent travel. feels ill and fatigued. - History of Current Complaint Chief Complaint: UCRespiratory Stated Complaint: CHEST CONGESTION, COUGH Time Seen by Provider: 03/13/19 15:24 Hx Obtained From: Patient Hx Last Menstrual Period: na Pain Intensity: 6 Pain Scale Used: 0-10 Numeric Character: Cough: Productive Aggravating Factors: Nothing Alleviating Factors: Nothing - Allergies/Home Medications Allergies/Adverse Reactions: Allergies Allergy/AdvReac Type Severity Reaction Status Date / Time ephedrine [From Tedral] Allergy Intermediate Unknown Verified 07/16/18 11:58 Reaction Details phenobarbital [From Tedral] Allergy Intermediate Unknown Verified 07/16/18 11:58 Reaction Details theophylline [From Tedral] Allergy Intermediate Unknown Verified 07/16/18 11:58 Reaction Details acetaminophen [From Tylenol] Allergy Unknown Verified 07/16/18 11:58 Reaction Details aspirin Allergy Unknown Verified 03/13/19 15:22 [From Talwin Compound] Reaction Details cimetidine Allergy Unknown Verified 03/13/19 15:22 Reaction Details clindamycin Allergy stomach Verified 03/13/19 15:22 upset codeine Allergy Unknown Verified 03/13/19 15:22 Reaction Details duloxetine [From Cymbalta] Allergy Unknown Verified 03/13/19 15:22 Reaction Details eszopiclone [From Lunesta] Allergy Unknown Verified 03/13/19 15:22 Reaction Details iodine Allergy Unknown Verified 03/13/19 15:22 Reaction Details mirtazapine [From Remeron] Allergy Unknown Verified 03/13/19 15:22 Reaction Details nefazodone [From Serzone] Allergy Unknown Verified 03/13/19 15:22 Reaction Details Penicillins Allergy Unknown Verified 03/13/19 15:22 Reaction Details pentazocine Allergy Unknown Verified 03/13/19 15:22 [From Talwin Compound] Reaction Details pregabalin [From Lyrica] Allergy Unknown Verified 03/13/19 15:22 Reaction Details ramelteon [From Rozerem] Allergy Unknown Verified 03/13/19 15:22 Reaction Details sertraline Allergy Unknown Verified 03/13/19 15:22 Reaction Details "ANYTHING GREEN"-PLANTS Allergy HIVES, Uncoded 03/13/19 15:22 SWELLING, ITCHING, REDNESS BEES Allergy Unknown Uncoded 03/13/19 15:22 Reaction Details green plants Allergy Unknown Uncoded 03/13/19 15:22 Reaction Details nickel Allergy Unknown Uncoded 03/13/19 15:22 Reaction Details shellfish Allergy Unknown Uncoded 03/13/19 15:22 Reaction Details PMH/Surg Hx/FS Hx/Imm Hx - Additional Past Medical History Additional PMH: RA Previously Healthy: Yes - Surgical History Surgical History: Yes Surgery Procedure, Year, and Place: HERNIA REPAIR. EXCISION MASS LEFT BREAST,- CLIPS IN. D&C, ROTATOR CUFF REPAIR,. EYE MUSCLE SURGERY X 3 A CHILD. TONSILLECTOMY AND ADENOIDECTOMY. DENTAL EXTRACTION WITH ANESTHESIA - Family History Known Family History: Positive: Cardiac Disease, Hypertension, Other - ankylsosi spondylitis; sister of bile duct cancer. Family History: arthritis, thyroid - Social History Alcohol Use: Occasionally Alcohol Amount: VARIES Substance Use Type: None Smoking Status (MU): Former Smoker Type: Cigarettes Amount Used/How Often: 2 PPD OFF AND ON 28 YEARS Length of Time of Smoking/Using Tobacco: 20 YRS Have You Smoked in the Last Year: No When Did the Patient Quit Smoking/Using Tobacco: 1999 - Immunization History Most Recent Influenza Vaccination: fall 2016 Most Recent Tetanus Shot: 2013 Most Recent Pneumonia Vaccination: never Review of Systems All Other Systems Reviewed And Are Negative: Yes Constitutional: Positive: Fever, Chills, Fatigue Skin: Negative: Rash Respiratory: Positive: Shortness Of Breath, Cough Cardiovascular: Positive: Negative Musculoskeletal: Negative: Edema Neurological: Negative: Headache Is Patient Immunocompromised?: Yes - see med list Physical Exam Triage Information Reviewed: Yes Appearance: No Pain Distress, Ill-Appearing Vital Signs: Initial Vital Signs Temp 97.4 F 03/13/19 15:19 Pulse 82 03/13/19 15:19 Resp 18 03/13/19 15:19 BP 160/88 03/13/19 15:19 Pulse Ox 96 03/13/19 15:19 Vital Signs Reviewed: Yes Eyes: Positive: Conjunctiva Clear ENT: Positive: Pharynx normal, TMs normal Neck: Positive: Supple, Nontender, No Lymphadenopathy Respiratory: Positive: No respiratory distress, No accessory muscle use, Crackles - throughout. Negative: Stridor Cardiovascular Exam: Normal Musculoskeletal: Positive: No Edema - LE Neurological: Positive: Alert Skin: Negative: Rashes Respiratory Course/Dx - Course Course Of Treatment: Worsening cough x2 wks w/ abnormal lung sounds on exam, febrile at home. She is immunocompromised given meds she's on. Vitals are good and O2 WNL. has taken z pack in the past so will rx. Blood pressure elevated and she will discuss with her primary care provider. - Differential Dx/Diagnosis Differential Diagnosis/HQI/PQRI: Bronchitis, Lower Resp Infection Provider Diagnosis: Pneumonia Discharge ED - Sign-Out/Discharge Documenting (check all that apply): Patient Departure All imaging exams completed and their final reports reviewed: No Studies - Discharge Plan Condition: Good Disposition: HOME Prescriptions: Azithromycin TAB* [Zithromax TAB (Z-E[place]ON) 250 mg #6 tabs] 2 tab PO .TODAY, THEN 1 DAILY #1 [place] Patient Education Materials: Pneumonia (ED) Referrals: Angus Wiley MD [Primary Care Provider] - Additional Instructions: please follow up with your primary care provider if not improving. - Billing Disposition and Condition Condition: GOOD Disposition: Home
== END 2019-03-13 16:00 | disposition home or self-care (01) ==
LOC: UCEAST 15:03
DX: J18.9 Pneumonia, unspecified organism (principal); Z88.8 Allergy status to other drugs, medicaments and biological substances; Z88.1 Allergy status to other antibiotic agents; Z88.0 Allergy status to penicillin; Z91.030 Bee allergy status; Z91.09 Other allergy status, other than to drugs and biological substances; Z91.013 Allergy to seafood; Z87.891 Personal history of nicotine dependence
CPT/HCPCS: 99212; G0463

== ENCOUNTER 2020-09-21 06:34 | Inpatient (IN) ==
[~2020-09-21 06:34] MED LIST changes: +Buffered Lidocaine 1% SYRIN 1 ml INTRADERM ONE; -Buffered Lidocaine 1% SYRIN* 1 ML/SYRINGE INTRADERM ONE; -DiMENhydriNATE IV* 50 MG/ML VIAL IV PUSH ONE; -Lactated Ringers 1000 ML Bag* 1,000 ML IV SCH; +Lactated Ringers 1000 ml BAG 1,000 ML IV SCH; -Naloxone* 0.4 MG/ML 1 ML VIAL IV PRN; -Ondansetron INJ* 2 MG/ML VIAL IV PRN; -fentaNYL* 50 MCG/ML 2 ML VIAL (100 MCG VIAL) IV PRN
[2020-09-21] MEDS ORDERED: Clindamycin 900 MG/D5W BAG 0 MG/0 ML BAG IVPB ONE (07:03)
[2020-09-21] MEDS ORDERED: Buffered Lidocaine 1% SYRIN 1 ml INTRADERM ONE (07:18)
[2020-09-21] MEDS ORDERED: ceFAZolin 2 GM in NS PREMIX 2 GM/100 ML BAG IVPB ONE (07:23)
[2020-09-21] MEDS ORDERED: ROPIVACAINE 5 MG/ML 30 ML BTL (0.5%) ONE ×2 (07:59→08:20)
[2020-09-21] MEDS ORDERED: Dexmedetomidine 200 mcg/2 ml 2 ml VIAL (200 mcg) ONE (08:21)
[2020-09-21] MEDS ORDERED: Midazolam 5 mg/5 ml VIAL 1 mg/ml 5 ml VIAL (5 mg) ONE (08:23)
[2020-09-21] MEDS ORDERED: fentaNYL 100 mcg/2 ml 50 MCG/ML VIAL ONE (08:23)
[2020-09-21] MEDS ORDERED: Naloxone 0.4 mg VIAL 0.4 mg/ml 1 ml VIAL IV PRN (09:39)
[2020-09-21] MEDS ORDERED: oxyCODONE/Acetamin 5/325 mg TAB PO PRN (09:39)
[2020-09-21] MEDS ORDERED: DiMENhydriNATE IV 50 mg/ml 1 ml VIAL IV PUSH PRN (09:39)
[2020-09-21] MEDS ORDERED: fentaNYL 100 mcg/2 ml 50 MCG/ML VIAL IV PRN (09:39)
[2020-09-21] MEDS ORDERED: Ondansetron 4 mg VIAL 2 MG/ML 2 ml VIAL IV PRN ×2 (09:39→10:34)
[2020-09-21] MEDS ORDERED: diPHENhydraMINE IV 50 MG/ML 1 ml VIAL (BENADRYL) IV PRN (10:34)
[2020-09-21] MEDS ORDERED: Ondansetron ODT 4 mg TAB 4 MG TAB PO PRN (10:34)
[2020-09-21] MEDS ORDERED: Magnesium Hydroxide LIQ 30 ML UDC PO PRN (10:34)
[2020-09-21] MEDS ORDERED: diPHENhydraMINE 25 mg TAB PO PRN (10:34)
[2020-09-21] MEDS ORDERED: Lactulose 30 ml UDC PO PRN (10:34)
[2020-09-21] MEDS ORDERED: Midazolam 2 mg/2 ml VIAL 1 mg/ml 2 ml VIAL (2 mg) ONE (10:36)
[2020-09-21] MEDS ORDERED: fentaNYL 250 mcg/5 ml 50 MCG/ML 5 ml VIAL (250 MCG) ONE (10:36)
[2020-09-21] MEDS ORDERED: Ondansetron 4 mg VIAL 2 MG/ML 2 ml VIAL ONE (10:36)
[2020-09-21] MEDS ORDERED: Propofol 10 MG/ML 20 ML BTL ONE (10:37)
[2020-09-21] MEDS ORDERED: [UNRECOGNIZED DRUG - OTHER] PO PRN (10:44)
[2020-09-21] MEDS ORDERED: NYSTATIN PO PRN (10:44)
[2020-09-21] MEDS ORDERED: ADALIMUMAB 40 MG/0.8 ML SUBCUT SCH (10:45)
[2020-09-21] MEDS ORDERED: [UNRECOGNIZED DRUG - REMARK] SUBCUT SCH (10:45)
[2020-09-21] MEDS ORDERED: oxyCODONE/Acetamin 5/325 mg TAB ONE (12:29)
[2020-09-21] MEDS: Lactated Ringers 1000 ml BAG 1,000 ML IV SCH (13:20)
[2020-09-21] MEDS ORDERED: Albuterol HFA INHALER 8 gm MDI INH PRN (14:00)
[2020-09-21] MEDS: oxyCODONE SR 15 mg TAB PO SCH ×2 (14:22→20:22)
[2020-09-21] MEDS: Morphine 2 MG/ML SYRINGE IV PRN ×2 (15:39→20:18)
[2020-09-21] MEDS: CICLOPIROX 8% TOPICAL SCH (16:13)
[2020-09-21] MEDS: ceFAZolin 1 GM ADVAN 1 GM in NS 0.9% 50 ML 50 ML IVPB SCH (17:47)
[2020-09-21] MEDS: Magnesium Hydroxide LIQ 30 ML UDC PO SCH (20:27)
[2020-09-21] MEDS: Mesalamine 1.2 gm TAB (NF) PO SCH (20:28)
[2020-09-22] MEDS: ceFAZolin 1 GM ADVAN 1 GM in NS 0.9% 50 ML 50 ML IVPB SCH ×2 (01:53→10:27)
[2020-09-22] MEDS: Lactated Ringers 1000 ml BAG 1,000 ML IV SCH (01:53)
[2020-09-22 05:14] LABS: Hematocrit 31 % (35-47); Hemoglobin 10.8 g/dL (12.0-16.0); Mean Platelet Volume 8.6 fL (7.4-10.4); Platelet Count 165 10^3/uL (150-450)
[2020-09-22 05:52] LABS: Calcium 8.6 mg/dL (8.6-10.3); EGFR Non-African American 85.9 (>60); Potassium 3.9 mmol/L (3.5-5.0)
[2020-09-22] MEDS: Mesalamine 1.2 gm TAB (NF) PO SCH ×2 (09:00→20:36)
[2020-09-22] MEDS: Vitamin THERAPEUTIC TAB PO SCH (09:02)
[2020-09-22] MEDS: oxyCODONE SR 15 mg TAB PO SCH ×3 (09:02→20:35)
[2020-09-22] MEDS: Magnesium Hydroxide LIQ 30 ML UDC PO SCH ×2 (09:02→20:32)
[2020-09-22] MEDS: CICLOPIROX 8% TOPICAL SCH (15:02)
[2020-09-23] MEDS: Morphine 2 MG/ML SYRINGE IV PRN ×4 (01:13→19:45)
[2020-09-23 04:59] LABS: Hematocrit 30 % (35-47); Mean Platelet Volume 8.6 fL (7.4-10.4); Platelet Count 152 10^3/uL (150-450)
[2020-09-23] MEDS: Magnesium Hydroxide LIQ 30 ML UDC PO SCH ×2 (08:54→21:11)
[2020-09-23] MEDS: Mesalamine 1.2 gm TAB (NF) PO SCH ×2 (08:54→21:11)
[2020-09-23] MEDS: Vitamin THERAPEUTIC TAB PO SCH (09:01)
[2020-09-23] MEDS: oxyCODONE SR 15 mg TAB PO SCH ×3 (09:01→21:11)
[2020-09-23] MEDS: CICLOPIROX 8% TOPICAL SCH (14:27)
[2020-09-24] MEDS: Morphine 2 MG/ML SYRINGE IV PRN ×4 (00:43→23:35)
[2020-09-24 04:39] LABS: Hematocrit 28 % (35-47); Hemoglobin 9.4 g/dL (12.0-16.0); Mean Platelet Volume 8.6 fL (7.4-10.4); Platelet Count 145 10^3/uL (150-450)
[2020-09-24] MEDS: Vitamin THERAPEUTIC TAB PO SCH (08:39)
[2020-09-24] MEDS: oxyCODONE SR 15 mg TAB PO SCH ×3 (08:41→21:13)
[2020-09-24] MEDS: Magnesium Hydroxide LIQ 30 ML UDC PO SCH ×2 (08:41→21:08)
[2020-09-24] MEDS: Mesalamine 1.2 gm TAB (NF) PO SCH ×2 (08:42→21:03)
[2020-09-24] MEDS: CICLOPIROX 8% TOPICAL SCH (14:24)
[2020-09-25] MEDS: Morphine 2 MG/ML SYRINGE IV PRN (03:50)
[2020-09-25 05:01] LABS: ABS Eosinophils 0.2 10^3/ul (0-0.6); ABS Lymphocytes 1.2 10^3/ul (1.0-4.8); ABS Monocytes 0.7 10^3/ul (0-0.8); ABS Neutrophils 2.8 10^3/ul (1.5-7.7); Eosinophil % 3.7 %; Hematocrit 27 % (35-47); Hemoglobin 9.3 g/dL (12.0-16.0); Lymphocyte % 23.8 %; Mean Corpuscular HGB Conc 34 g/dL (31-36); Mean Corpuscular Hemoglobin 31 pg (27-31); Mean Corpuscular Volume 90 fL (80-97); Mean Platelet Volume 8.5 fL (7.4-10.4); Platelet Count 192 10^3/uL (150-450); Red Blood Count 3.01 10^6 /uL (3.70-4.87); Red Cell Distribution Width 12 % (10-15); White Blood Count 4.8 10^3/uL (3.5-10.8)
[2020-09-25] MEDS: Vitamin THERAPEUTIC TAB PO SCH (08:49)
[2020-09-25] MEDS: oxyCODONE SR 15 mg TAB PO SCH ×2 (08:49→14:20)
[2020-09-25] MEDS: Magnesium Hydroxide LIQ 30 ML UDC PO SCH (08:51)
[2020-09-25] MEDS: Mesalamine 1.2 gm TAB (NF) PO SCH (11:19)
[2020-09-25 11:52] VITALS: BP 125/70
[2020-09-25] MEDS: CICLOPIROX 8% TOPICAL SCH (14:27)
[2020-09-25] MEDS ORDERED: CICLOPIROX TOPICAL SCH (15:00)
== END 2020-09-25 16:20 | disposition home or self-care (01) | DRG 470 ==
LOC: AA 06:34 → SSU 13:25
PROVIDERS: ADMIT Orthopaedic Surgery Adult Reconstructive Orthopaedic Surgery; ATTEND Orthopaedic Surgery Adult Reconstructive Orthopaedic Surgery

== ENCOUNTER 2020-09-26 15:52 | Observation (INO) ==
[2020-09-26] MEDS ORDERED: NS 0.9% 1000 ml BAG 1,000 ML IV ONE (17:29)
[2020-09-26 19:32] LABS: ABS Eosinophils 0.1 10^3/ul (0-0.6); ABS Lymphocytes 1.1 10^3/ul (1.0-4.8); ABS Monocytes 0.8 10^3/ul (0-0.8); ABS Neutrophils 2.8 10^3/ul (1.5-7.7); Eosinophil % 2.8 %; Hematocrit 32 % (35-47); Hemoglobin 10.6 g/dL (12.0-16.0); Lymphocyte % 22.3 %; Mean Corpuscular HGB Conc 33 g/dL (31-36); Mean Corpuscular Hemoglobin 30 pg (27-31); Mean Corpuscular Volume 90 fL (80-97); Platelet Count 215 10^3/uL (150-450); Red Blood Count 3.53 10^6 /uL (3.70-4.87); Red Cell Distribution Width 12 % (10-15); White Blood Count 4.8 10^3/uL (3.5-10.8)
[2020-09-26 19:42] LABS: Calcium 8.9 mg/dL (8.6-10.3); Magnesium 1.8 mg/dL (1.9-2.7); Potassium 4.2 mmol/L (3.5-5.0)
[2020-09-26 19:48] LABS: C Reactive Protein 84.03 mg/L (<8.01); EGFR African American 102.3 (>60); EGFR Non-African American 84.5 (>60)
[2020-09-26] MEDS ORDERED: Albuterol HFA INHALER 8 gm MDI INH PRN (20:28)
[2020-09-26] MEDS: oxyCODONE SR 15 mg TAB PO SCH (23:45)
[2020-09-27] MEDS: oxyCODONE SR 15 mg TAB PO SCH ×2 (07:48→15:56)
[2020-09-27] MEDS: Mesalamine 1.2 gm TAB (NF) PO SCH (09:44)
[2020-09-28] MEDS: oxyCODONE SR 15 mg TAB PO SCH ×2 (01:05→08:42)
[2020-09-28 05:46] LABS: Magnesium 1.9 mg/dL (1.9-2.7); Potassium 4.2 mmol/L (3.5-5.0)
[2020-09-28 05:51] LABS: EGFR African American 115.5 (>60); EGFR Non-African American 95.4 (>60)
[2020-09-28] MEDS: Mesalamine 1.2 gm TAB (NF) PO SCH (09:58)
[2020-09-28 11:30] VITALS: BP 131/68
== END 2020-09-28 14:26 | disposition swing bed (61) ==
LOC: SSU 15:52 → ED 15:52 → SSU 23:02
PROVIDERS: ADMIT Internal Medicine; ATTEND Hospitalist

== ENCOUNTER 2020-09-28 14:49 | Inpatient (IN) ==
[2020-09-28] MEDS ORDERED: Albuterol HFA INHALER 8 gm MDI INH PRN (16:05)
[2020-09-28] MEDS: oxyCODONE SR 15 mg TAB PO SCH (16:38)
[2020-09-28] MEDS: Chlorhexidine MOUTHWASH 0.12% 15 ML UDC SWISH SPIT SCH ×2 (16:59→22:35)
[2020-09-29] MEDS: oxyCODONE SR 15 mg TAB PO SCH ×4 (01:23→23:59)
[2020-09-29 06:00] LABS: ABS Eosinophils 0.1 10^3/ul (0-0.6); ABS Lymphocytes 1.1 10^3/ul (1.0-4.8); ABS Monocytes 0.7 10^3/ul (0-0.8); ABS Neutrophils 2.5 10^3/ul (1.5-7.7); Hematocrit 31 % (35-47); Hemoglobin 10.4 g/dL (12.0-16.0); Lymphocyte % 24.1 %; Mean Corpuscular HGB Conc 34 g/dL (31-36); Mean Corpuscular Hemoglobin 30 pg (27-31); Mean Corpuscular Volume 90 fL (80-97); Mean Platelet Volume 8.2 fL (7.4-10.4); Platelet Count 287 10^3/uL (150-450); Red Blood Count 3.42 10^6 /uL (3.70-4.87); Red Cell Distribution Width 12 % (10-15); White Blood Count 4.4 10^3/uL (3.5-10.8)
[2020-09-29 06:11] LABS: Calcium 8.8 mg/dL (8.6-10.3); Potassium 4.2 mmol/L (3.5-5.0)
[2020-09-29 06:17] LABS: C Reactive Protein 82.24 mg/L (<8.01); EGFR African American 124.6 (>60); EGFR Non-African American 102.9 (>60)
[2020-09-29] MEDS: Chlorhexidine MOUTHWASH 0.12% 15 ML UDC SWISH SPIT SCH ×3 (08:31→20:32)
[2020-09-30] MEDS: oxyCODONE SR 15 mg TAB PO SCH ×2 (07:55→15:56)
[2020-09-30] MEDS: Chlorhexidine MOUTHWASH 0.12% 15 ML UDC SWISH SPIT SCH ×3 (08:27→19:57)
[2020-10-01] MEDS: oxyCODONE SR 15 mg TAB PO SCH ×3 (00:16→15:46)
[2020-10-01] MEDS: Chlorhexidine MOUTHWASH 0.12% 15 ML UDC SWISH SPIT SCH ×3 (09:08→20:25)
[2020-10-02] MEDS: oxyCODONE SR 15 mg TAB PO SCH ×3 (00:23→15:50)
[2020-10-02] MEDS: Chlorhexidine MOUTHWASH 0.12% 15 ML UDC SWISH SPIT SCH ×3 (08:09→21:46)
[2020-10-03] MEDS: oxyCODONE SR 15 mg TAB PO SCH ×3 (00:30→16:24)
[2020-10-03] MEDS: Chlorhexidine MOUTHWASH 0.12% 15 ML UDC SWISH SPIT SCH ×3 (08:34→20:26)
[2020-10-04] MEDS: oxyCODONE SR 15 mg TAB PO SCH ×3 (00:03→16:34)
[2020-10-04] MEDS: Chlorhexidine MOUTHWASH 0.12% 15 ML UDC SWISH SPIT SCH ×3 (08:37→21:18)
[2020-10-05] MEDS: oxyCODONE SR 15 mg TAB PO SCH ×2 (00:49→08:20)
[2020-10-05] MEDS: Chlorhexidine MOUTHWASH 0.12% 15 ML UDC SWISH SPIT SCH ×2 (08:20→13:47)
[2020-10-05 11:48] VITALS: BP 151/72
== END 2020-10-05 15:40 | disposition home health service (06) ==
LOC: SSU 15:47
PROVIDERS: ADMIT Hospitalist; ATTEND Internal Medicine